=== PATIENT | male | born 1985 | race African-American/Black ===

== ENCOUNTER 2020-08-22 21:02 | Emergency (ER) | payer OTHER, SELFPAY ==
[2020-08-22 21:03] VITALS: BP 122/65; PULSE 62; RESP 16; TEMP 37.2; O2SAT 99; BMI 29.8
--- NOTE | 2020-08-22 21:16 | EX.ED.DYSGE1 ---
HPI History of Present Illness Chief Complaint: Abscess Informant: patient Narrative Narrative: Patient here with significant other evaluation concern abscess right elbow. States had a bump there for the past year, recently was messing with it, more inflamed reported scabbing and there was pus drainage. Denies fever. He denies any significant friction work on the elbow. He states increasing tenderness specially with palpation. No other complaints. Denies any past medical history or allergies. He is from the [facility] visiting his significant other. Prior similar symptoms: No PFSH PFSH Allergy/AdvReac Type Severity Reaction Status Date / Time No Known Allergies Allergy Verified 08/22/20 21:05 Social History Smoking Status: Current every day smoker tobacco type: cigars ROS ROS ED Constitutional Constitutional ED: Denies chills, fever(s) or sweats Eyes Eyes: Denies change in vision ENT ENT ED: Denies dysphagia or sore throat Cardiovascular Cardiovascular: Denies chest pain, leg edema, palpitations or racing heartbeat Respiratory/Chest Respiratory/Chest: Denies cough, dyspnea or dyspnea on exertion Gastrointestinal Gastrointestinal: Denies abdominal pain, diarrhea, nausea or vomiting Genitourinary Genitourinary ED: Denies dysuria, hematuria or urinary frequency Musculoskeletal Musculoskeletal: Denies back pain, extremity pain or neck pain Integumentary Reports abscess; Denies rash or wounds Neurologic Neurologic: Denies headache(s), paresthesias or weakness EXAM Physical Exam Const Vital Signs: 08/22/20 21:03 Temperature 98.9 F Temperature Source Temporal Pulse Rate 62 Respiratory Rate 16 Blood Pressure 122/65 H Blood Pressure Mean 84 Pulse Ox 99 Oxygen Delivery Method Room Air Positive well nourished and well developed General Appearance ED: well developed and NAD HEENT Reports moist mucous membranes normocephalic and atraumatic Eyes PERRL, EOMs intact bilaterally and conjunctivae normal General Eye ED: Yes normal appearance of both eyes Neck no lymphadenopathy and supple General: Negative for tenderness Chest Wall Chest: Negative for tenderness Resp normal respiratory effort and normal air movement Effort and Inspection: symmetric chest movement; Negative for respiratory distress Cardio regular rate, regular rhythm and no murmurs Peripheral Pulses: pulses 2+ throughout GI normal to inspection, nondistended, normoactive bowel sounds and non-tender Palpation: Negative for guarding or rebound tenderness present Back/Spine no CVA tenderness and no thoracic nor lumbar tenderness Extremity normal to inspection General Extremety ED: Negative for edema or tenderness General Extremity: Negative for edema Neuro oriented x3 and no sensory deficits noted Sensorium / Orientation: awake and alert Skin Skin Narrative: Right elbow: Olecranon 1.5 cm nodule scabbing in the middle no surrounding erythema. No active drainage. Tender to palpation. Nodule is movable, it did not hear deeply, I was able to lift up off the skin. There is no fluctuance. MDM MDM MDM Narrative Medical decision making narrative: Patient with a nodule enlarging now given problems. Is 1.5 cm in diameter. Discussed with patient for I&D versus excision. He states he would prefer excision due to giving him problems. This was performed with his consent. Elliptical incision removal of nodule which was superficial. Skin was closed with sutures. Wound care discussed with the patient. He is given follow-up as an outpatient. He lives in the [facility]. Signs symptom discussed return. All questions answered. Procedure note: Verbal consent with patient. Right elbow skin anesthetized with 1% local analgesia of 5 cc. Betadine prep of the skin. A 15 blade was used for elliptical excision, this was used to remove the nodule from underneath. Hopefully flushed with normal saline. Elliptical excision was closed with total of 3, 4-0 horizontal sutures, including 2, 4-0 simple interrupted sutures. Minimal blood loss. Patient taught procedure well. Dressing placed by myself. Discharge Plan Triage Chief Complaint: Abscess ED Provider: Jose Antonio Zapata Dx/Rx/DC Orders Clinical Impression: Nodule of skin of forearm Instructions: Suture Care, ED Wound Care Primary Care Provider: NOT,DEFINED Referrals: Jade Granados DO [NON-STAFF] - 10-14 Days suture removal NOT,DEFINED [Primary Care Provider] - Activity Restrictions/Additional Instructions: chronic 1.5 cm right elbow nodule. Excised in the ED. Sutures to removed in 14 days. Disposition Disposition: Home, Self Care
[2020-08-22] MEDS: Lidocaine 1% (20 ml mdv) 20 ML Vial INFILT (21:20)
== END 2020-08-22 22:03 | disposition home or self-care (01) ==
PROVIDERS: Emergency Provider Emergency Medicine
DX: L02.413 Cutaneous abscess of right upper limb (principal); F17.210 Nicotine dependence, cigarettes, uncomplicated
CPT/HCPCS: 10060; 99283